=== PATIENT | male | born 1950 | race Caucasian/White ===

== ENCOUNTER → 2019-12-31 | Outpatient (CLI) | payer MEDICARE | END | disposition home or self-care (01) | LOC: RAD 13:23 → EDSEX 13:23 | PROVIDERS: ATTEND Family Medicine | DX: I65.23 Occlusion and stenosis of bilateral carotid arteries (principal); G31.9 Degenerative disease of nervous system, unspecified | CPT/HCPCS: 70551; 93880 ==

== ENCOUNTER 2020-02-07 08:58 | Observation (INO) | payer MEDICARE ==
[~2020-02-07] VITALS: Ht 167.6 cm; Wt 68.2 kg
[2020-02-07] MEDS ORDERED: LISI40TA PO (09:29)
[2020-02-07] MEDS ORDERED: CHOL10003 PO (09:29)
[2020-02-07] MEDS ORDERED: FINA5TAB4 PO (09:29)
[2020-02-07] MEDS ORDERED: MULT1TAB13 PO (09:29)
[2020-02-07] MEDS ORDERED: AMLO-150 PO (09:29)
[2020-02-07] MEDS ORDERED: ATOR40TA78 PO (09:29)
[2020-02-07] MEDS ORDERED: HYDROCHLOROTH12.5 MG PO (09:29)
[2020-02-07 09:30] VITALS: BP 149/82
[2020-02-07 09:48] LABS: BASOPHILS # (AUTO) 0.02 x10^3/uL (0-0.1); BASOPHILS % (AUTO) 0 % (0-1); EOSINOPHILS # (AUTO) 0.06 x10^3/uL (0-0.4); EOSINOPHILS % (AUTO) 1 % (1-7); LYMPHOCYTES # (AUTO) 1.26 x10^3/uL (1-3.4); LYMPHOCYTES % (AUTO) 19 % (22-44); MD NO; MEAN PLATELET VOLUME 6.8 fL (7.4-10.4); MONOCYTES # (AUTO) 0.65 x10^3/uL (0.2-0.8); MONOCYTES % (AUTO) 10 % (2-9); NEUTROPHILS # (AUTO) 4.61 x10^3/uL (1.8-6.8); NEUTROPHILS % (AUTO) 70 % (42-75); PLATELET COUNT 284 x10^3/uL (130-400); RED BLOOD COUNT 4.81 x10^6/uL (4.38-5.82); RED CELL DISTRIBUTION WIDTH 12.6 % (9.4-14.8)
[2020-02-07 09:56] LABS: ANION GAP 9 mmol/L (5-15); CALCIUM 9.6 mg/dL (8.5-10.1); CHLORIDE 106 mmol/L (98-107); CREATININE 0.99 mg/dL (0.7-1.3)
[2020-02-07] MEDS ORDERED: CEFAZOLIN PMX 1GM/50ML 50 ML ONE (10:41)
[2020-02-07] MEDS ORDERED: FENTANYL PF 100 MCG/2ML ONE (10:41)
[2020-02-07] MEDS ORDERED: CEFAZOLIN 1,000 MG ONE (10:41)
[2020-02-07] MEDS ORDERED: MIDAZOLAM 1 MG/ML, 5ML ONE (10:41)
[2020-02-07] MEDS ORDERED: LIDOCAINE 2%, 20ML ONE (10:41)
[2020-02-07] MEDS ORDERED: DIPHENHYDRAMINE 50 MG/ML, 1ML ONE (11:15)
[2020-02-07] MEDS ORDERED: HOLD MEDICATION MC PRN (12:00)
[2020-02-07] MEDS ORDERED: HYDROcodone/APAP 5/325 TABLET PO PRN (12:00)
[2020-02-07 12:05] VITALS: BP 143/77
[2020-02-07] MEDS: SODIUM CHLORIDE 0.9% 1,000 ML IV SCH ×2 (12:35→17:19)
[2020-02-07 14:54] VITALS: BP 103/64
[2020-02-07] MEDS: CEFAZOLIN PMX 1GM/50ML 50 ML IVPB SCH (19:38)
[2020-02-07 21:00] VITALS: BP 147/89
[2020-02-07] MEDS ORDERED: ATORVASTATIN 40 MG TABLET PO SCH (21:00)
[2020-02-07] MEDS: ACETAMINOPHEN 325 MG TABLET PO PRN (21:19)
[2020-02-07] MEDS: SODIUM CHLORIDE FLUSH 10ML SYR IVF SCH (21:19)
[2020-02-08 03:05] VITALS: BP 126/79
[2020-02-08 06:56] VITALS: BP 109/70
[2020-02-08] MEDS: CEFAZOLIN PMX 1GM/50ML 50 ML IVPB SCH (07:28)
[2020-02-08] MEDS: ACETAMINOPHEN 325 MG TABLET PO PRN (08:25)
[2020-02-08] MEDS: SODIUM CHLORIDE FLUSH 10ML SYR IVF SCH (08:26)
[2020-02-08] MEDS ORDERED: MULTIVITAMIN 1 TABLET PO SCH (09:00)
[2020-02-08] MEDS ORDERED: LISINOPRIL 40 MG TABLET PO SCH (09:00)
[2020-02-08] MEDS ORDERED: HYDROCHLOROTHIAZIDE 12.5 MG CAPSULE PO SCH (09:00)
[2020-02-08] MEDS ORDERED: CHOLECALCIFEROL 1,000 UNIT TABLET PO SCH (09:00)
[2020-02-08] MEDS ORDERED: AMLODIPINE 5 MG TABLET PO SCH (09:00)
[2020-02-08] MEDS ORDERED: FINASTERIDE 5 MG TABLET PO SCH (09:00)
== END 2020-02-08 10:56 | disposition home or self-care (01) ==
LOC: CACL 08:58 → ORIP 11:46 → 5SO 12:03
PROVIDERS: ADMIT Internal Medicine Cardiovascular Disease; ATTEND Internal Medicine Cardiovascular Disease
DX: I49.5 Sick sinus syndrome (principal); I10 Essential (primary) hypertension; E78.00 Pure hypercholesterolemia, unspecified; F17.210 Nicotine dependence, cigarettes, uncomplicated; R55 Syncope and collapse; Z79.899 Other long term (current) drug therapy; Z88.2 Allergy status to sulfonamides
CPT/HCPCS: 33208; 36415; 71045; 80048; 85025; 96365; 96366; 99156; 99157; C1779; C1785; C1892; G0378; J0690; J1200; J2250; J3010; J3490

== ENCOUNTER → 2020-06-11 | Outpatient (CLI) | payer MEDICARE ==
[~2020-06-11] MED LIST: AMLO-150 PO; ATOR40TA78 PO; CHOL10003 PO; FINA5TAB4 PO; HYDROCHLOROTH12.5 MG PO; LISI40TA PO; MULT1TAB13 PO
== END | disposition home or self-care (01) ==
LOC: CFH 08:00
PROVIDERS: ATTEND Internal Medicine Cardiovascular Disease
DX: Z13.6 Encounter for screening for cardiovascular disorders (principal); I35.8 Other nonrheumatic aortic valve disorders; E78.00 Pure hypercholesterolemia, unspecified; I49.5 Sick sinus syndrome; I25.10 Atherosclerotic heart disease of native coronary artery without angina pectoris
CPT/HCPCS: 75571; 93306